=== PATIENT | male | born 1980 | race Two or more races ===

== ENCOUNTER 2023-01-03 19:14 | Emergency (ER) | payer OTHER ==
[~2023-01-03] VITALS: Ht 193 cm; Wt 127.0 kg
[2023-01-03] MEDS ORDERED: ZITHROMAX500 MG PO (23:21)
== END 2023-01-04 00:08 | disposition home or self-care (01) ==
LOC: ER 19:14
DX: J00 Acute nasopharyngitis [common cold] (principal); R05.9 Cough, unspecified

== ENCOUNTER 2023-01-04 05:46 | Emergency (ER) | payer OTHER ==
[~2023-01-04] VITALS: Ht 193 cm; Wt 127.0 kg
[~2023-01-04 05:46] MED LIST: ZITHROMAX500 MG PO
== END 2023-01-04 08:15 | disposition home or self-care (01) ==
LOC: ER 05:46
DX: M54.17 Radiculopathy, lumbosacral region (principal)